=== PATIENT | male | born 1950 | race Caucasian/White ===

== ENCOUNTER 2019-05-02 11:37 | Emergency (ER) | payer MEDICARE ==
[~2019-05-02] VITALS: Ht 165.1 cm; Wt 77.3 kg
[2019-05-02] MEDS ORDERED: TEST200I14 IM (12:18)
[2019-05-02] MEDS ORDERED: ZANT150T40 PO (12:18)
[2019-05-02] MEDS ORDERED: BAYE325T13 PO (12:18)
[2019-05-02] MEDS ORDERED: MECLIZINE 25 MG TABLET PO ONE (12:30)
[2019-05-02 12:50] LABS: BASO % 0.2 % (0.0-1.0); EOS # 0.1 10^3/uL (0.0-0.50); EOS % 0.7 % (0.0-3.0); HEMATOCRIT 50.2 % (42.0-52.0); HEMOGLOBIN 17.6 g/dl (13.5-17.5); LYMPH % 9.6 % (24.0-44.0); MEAN CORPUSCULAR HEMOGLOBIN 34.8 pg (27.0-33.0); MEAN CORPUSCULAR HGB CONC 35.1 g/dl (32.0-36.5); MEAN CORPUSCULAR VOLUME 99.2 fl (80.0-96.0); MONO % 9.9 % (0.0-5.0); NEUTROPHILS # 8.1 10^3/uL (1.8-7.7); NEUTROPHILS % 79.2 % (36.0-66.0); PLATELET COUNT, AUTOMATED 210 10^3/uL (150-450); RED BLOOD COUNT 5.06 10^6/uL (4.30-6.10); WHITE BLOOD COUNT 10.2 10^3/uL (4.0-10.0)
[2019-05-02 13:05] LABS: PROTHROMBIN TIME 12.9 SECONDS (11.8-14.0)
--- NOTE | 2019-05-02 13:08 | REP ---
HISTORY: Syncope. COMPARISON: None. TECHNIQUE: 4.5 mm contiguous transaxial sections were obtained from the skull base to the cerebral convexities with thin cuts through the posterior fossa without the administration of intravenous contrast. FINDINGS: The ventricles and sulci are consistent with the patient's age. There are no extra-axial fluid collections. There is no mass effect. The deep cerebral white matter is consistent with the patient's age. The orbital and petrous structures, cerebellopontine angles, and posterior fossa are unremarkable. The sella turcica, cavernous, and paracavernous structures are essentially unremarkable. The visualized portions of the paranasal sinuses and mastoid air cells are clear. Images of the skull base show no gross abnormality. IMPRESSION: Essentially unremarkable CT examination of the brain. Electronically Signed by Benjamin Soler DO 05/02/2019 01:44 P
--- NOTE | 2019-05-02 13:21 | REP ---
HISTORY: Syncope. COMPARISON: None. The technique utilized in obtaining the radiograph has magnified the cardiac silhouette and accentuated the interstitial markings. The superior mediastinal structures are midline. The cardiac silhouette is unremarkable in size, shape, and position. The diaphragmatic surfaces of the lungs are regular, and the costophrenic angles are clear. The pulmonary hardin are clear. The imaged osseous structures are intact. IMPRESSION: There is no acute cardiopulmonary disease. Electronically Signed by Benjamin Soler DO 05/02/2019 01:44 P
[2019-05-02 13:26] LABS: BLOOD UREA NITROGEN 17 MG/DL (7-18); CALCIUM LEVEL 8.6 MG/DL (8.8-10.2); CARBON DIOXIDE LEVEL 28 MEQ/L (21-32); CHLORIDE LEVEL 106 MEQ/L (98-107); CK-MB VALUE MASS 2.4 NG/ML (<3.6); CPK CREATINE PHOSPHOKINASE 126 U/L (39-308); CREATININE FOR GFR 1.23 MG/DL (0.70-1.30); ETHYL ALCOHOL (ETHANOL) < 0.003 % (0.000-0.010); FREE T4 0.78 NG/DL (0.76-1.46); GLOMERULAR FILTRATION RATE > 60.0 (>49); GLUCOSE, FASTING 129 MG/DL (70-100); POTASSIUM SERUM 3.7 MEQ/L (3.5-5.1); SODIUM LEVEL 140 MEQ/L (136-145); TROPONIN I < 0.02 NG/ML (< 0.10)
[2019-05-02 13:45] VITALS: BP 147/82
[2019-05-02] MEDS ORDERED: MECL-68 PO (13:57)
[2019-05-02 14:37] LABS: AMPHETAMINES LEVEL URINE NEGATIVE (NEGATIVE); BARBITURATES URINE NEGATIVE (NEGATIVE); BENZODIAZEPINES URINE POSITIVE (NEGATIVE); CANNABINOIDS URINE POSITIVE (NEGATIVE); COCAINE METABOLITE URINE NEGATIVE (NEGATIVE); METHADONE URINE NEGATIVE (NEGATIVE); OPIATES URINE NEGATIVE (NEGATIVE); PHENCYCLIDINE URINE NEGATIVE (NEGATIVE)
--- NOTE | 2019-05-02 21:37 | ECGEPIP ---
[facility] - ED Test Date: 2019-05-02 Pat Name: BILL WALLACE Department: Room: - Gender: Male [employer]: [facility] : 1950 Requested By: Leo Valderrama Order Number: [id number] Reading MD: Mally Law Measurements Intervals [place] Rate: 81 P: 18 CO: 174 QRS: -48 QRSD: 106 T: 19 QT: 381 QTc: 443 Interpretive Statements SINUS RHYTHM LEFT ANTERIOR FASCICULAR BLOCK NO PRIOR Electronically Signed on 05-02-2019 21:37:32 EDT by Mally Law
== END 2019-05-02 14:37 | disposition home or self-care (01) ==
LOC: M ED 12:43
DX: H81.10 Benign paroxysmal vertigo, unspecified ear (principal); G89.29 Other chronic pain; M54.9 Dorsalgia, unspecified; I44.4 Left anterior fascicular block; Z86.73 Personal history of transient ischemic attack (TIA), and cerebral infarction without residual deficits; Z82.49 Family history of ischemic heart disease and other diseases of the circulatory system; Z79.82 Long term (current) use of aspirin; Z79.899 Other long term (current) drug therapy; Z88.8 Allergy status to other drugs, medicaments and biological substances
CPT/HCPCS: 70450; 71045; 80048; 80307; 82550; 82553; 83735; 84439; 84443; 84484; 85025; 85610; 93005; 93041; 94760; 99285; G0480